=== PATIENT | male | born 2000 | race Caucasian/White ===

== ENCOUNTER 2023-06-19 12:47 | Outpatient (CLI) | payer OTHER, SELFPAY ==
--- NOTE | ~2023-06-19 | US_ITS ---
EXAMINATION: US soft tissue head and neck DATE: 06/19/2023 13:14 INDICATION: Infection of parotid gland with large palpable lump at the right neck situated between th e ear and the angle of the mandible TECHNIQUE: Multiple grayscale and Doppler ultrasound images of the right face/neck at the region of c oncern were obtained. COMPARISON: None FINDINGS: There are a few small anechoic cystic-appearing lesions with posterior acoustic enhancement in the le ft parotid gland, the larger measuring 8 x 5 x 4 mm and the smaller measuring 5 x 4 x 3 mm. No eviden t internal vascular flow within the lesions on color Doppler or solid soft tissue component. Surround ing left parotid gland is unremarkable. In the right parotid gland are couple larger very hypoechoic nodules but with prominent internal vascular flow on color Doppler. The larger measures 1.9 x 1.7 x 1 .5 cm with what appears to be a prominent echogenic hilum suggesting this could represent a lymph nod e. A smaller lesion also with increased internal vascular flow on color Doppler measures 6 x 6 x 5 mm . IMPRESSION: 1. A couple lesions in both the left and right parotid glands. The lesions on the left are smaller wi thout discernible soft tissue component or internal vascular flow. The lesions on the right are large r and with increased central vascular flow suggesting enlarged lymph nodes or solid parotid neoplasm which could be either benign or malignant. Recommend ultrasound-guided fine-needle aspiration of at l east the largest if not both of the lesions in the right parotid gland. Reviewed, dictated and finalized at location A. IMPRESSION: 1. A couple lesions in both the left and right parotid glands. The lesions on t he left are smaller without discernible soft tissue component or internal vascu lar flow. The lesions on the right are larger and with increased central vascul ar flow suggesting enlarged lymph nodes or solid parotid neoplasm which could b e either benign or malignant. Recommend ultrasound-guided fine-needle aspiratio n of at least the largest if not both of the lesions in the right parotid gland .
== END 2023-06-19 12:48 | disposition home or self-care (01) ==
LOC: CHSIMG 12:50
DX: K11.20 Sialoadenitis, unspecified (principal)
CPT/HCPCS: 76536

== ENCOUNTER 2023-07-23 12:41 | Outpatient (CLI) | payer OTHER, SELFPAY ==
--- NOTE | ~2023-07-23 | US_ITS ---
EXAMINATION: US FNA w image guidance DATE: 07/23/2023 13:47 INDICATION: Right parotid nodule TECHNIQUE: A time-out was performed to verify the patient's name, date of , and procedure to be performed . The procedure and its benefits and risks were discussed with the patient. Risks specifically discus sed included bleeding and infection. The patient understood the risks and agreed to proceed. The neck was prepped and draped in the usual sterile manner. 2 mL 1% lidocaine was used for local anesthesia . 6 passes were made with a 25G needle into the lesion. Appropriate needle location was documented with continuous sonographic guidance. A sterile bandage was applied. There were no immediate compli cations. FINDINGS: Grayscale ultrasound images demonstrate biopsy needles advanced into a 2.0 x 1.3 x 1.9 cm. There appe ars to be echogenic fatty hilum within the nodule favoring an enlarged lymph node. Additional real-ti me imaging of the remainder of the right parotid, the contralateral left parotid in the bilateral jug ular chains was performed. There were 2 12 x 8 mm and 7 x 5 mm similarly very hypoechoic nodules with in the right parotid lobe without evident echogenic hilum. Similar very hypoechoic nodules in the lef t parotid, one with small echogenic likely hilum measuring 9 x 9 mm and the second measuring 9 x 7 mm . There are also enlarged lymph nodes along the bilateral jugular chains measuring up to 2.3 x 1.4 x 1.6 similar on the right and 2.3 x 2.2 x 1.5 cm on the left. IMPRESSION: 1. Successful ultrasound-guided fine needle aspiration of the 2.0 x 1.3 x 1.9 cm hypoechoic right pa rotid nodule of concern likely representing an enlarged lymph node. 2. 4 additional smaller but similar-appearing very hypoechoic parotid nodules identified, 2 in the le ft parotid and 2 additional in the right parotid. There are also enlarged bilateral jugular chain lym ph nodes. This raises the possibility of lymphoma or metastatic disease if there is known history of prior malignancy. The patient reports that the palpable nodules have subjectively decreased in size s uggesting these could represent reactive lymphadenopathy. Depending on the results in the current bio psy and clinical history could consider either further clinical and/or imaging follow-up or core need le biopsy of one of the larger jugular chain lymph nodes. Reviewed, dictated and finalized at location A. IMPRESSION: 1. Successful ultrasound-guided fine needle aspiration of the 2.0 x 1.3 x 1.9 cm hypoechoic right parotid nodule of concern likely representing an enlarged l ymph node. 2. 4 additional smaller but similar-appearing very hypoechoic parotid nodules i dentified, 2 in the left parotid and 2 additional in the right parotid. There a re also enlarged bilateral jugular chain lymph nodes. This raises the possibili ty of lymphoma or metastatic disease if there is known history of prior maligna ncy. The patient reports that the palpable nodules have subjectively decreased in size suggesting these could represent reactive lymphadenopathy. Depending on the results in the current biopsy and clinical history could consider either f madayther clinical and/or imaging follow-up or core needle biopsy of one of the la rger jugular chain lymph nodes.
== END 2023-07-23 12:42 | disposition home or self-care (01) ==
PROVIDERS: Visit Provider Otolaryngology
DX: K11.8 Other diseases of salivary glands (principal)
CPT/HCPCS: 10005; 88108; 88305

== ENCOUNTER 2023-08-14 15:51 | Outpatient (CLI) | payer OTHER, SELFPAY ==
[2023-08-14 16:03] LABS: Basophils Percent Auto 0.4 % (0.2-1.2); Eosinophils Absolute Auto 0.1 K/mm3 (0-0.3); Eosinophils Percent Auto 1.2 % (0-4.4); Hematocrit 40.6 % (42.0-52.0); Hemoglobin 13.7 g/dL (14.0-18.0); Immature Granulocyte Absolute 0.02 K/mm3 (0.00-0.031); Immature Granulocyte Percent A 0.3 % (0-0.5); Lymphocytes Absolute Auto 3.41 K/mm3 (0.9-3.2); Lymphocytes Percent Auto 45.5 % (18.3-44.2); Mean Corpuscular HGB Conc 33.7 g/dl (32-36); Mean Corpuscular Hemoglobin 28.4 pg (26-34); Mean Corpuscular Volume 84.1 fl (80-100); Mean Platelet Volume 8.8 fl (7.4-10.4); Monocytes Absolute Auto 0.6 K/mm3 (0.1-0.6); Monocytes Percent Auto 8.5 % (2.6-8.5); Neutrophils Absolute Auto 3.3 K/mm3 (1.3-6.7); Neutrophils Percent Auto 44.1 % (45.5-73.1); Platelet Count Result 256 k/mm3 (150-375); Red Blood Count 4.83 M/mm3 (4.6-6.20); Red Cell Distribution Width 12.2 % (11.5-14.5); White Blood Count 7.5 K/mm3 (4.5-10.0)
[2023-08-14 16:42] LABS: Alanine Aminotransferase 55 U/L (6-50); Albumin Level 4.5 g/dL (3.5-5.1); Alkaline Phosphatase 58 U/L (38-126); Anion Gap 6 mmol/L (8-16); Aspartate Amino Transferase 39 U/L (17-59); Bilirubin,Total 1.2 mg/dL (0.2-1.3); Blood Urea Nitrogen 14 mg/dL (9-20); CRP < 0.5 mg/dL (<1.0); Calcium 9.2 mg/dL (8.4-10.2); Carbon Dioxide 31 mmol/L (22-30); Chloride 101 mmol/L (98-107); Estimated Glomerular Filt Rate > 60; Glucose 88 mg/dL (65-110); Lactate Dehydrogenase 182 U/L (120-246); Potassium 4.2 mmol/L (3.4-5.0); Sodium 138 mmol/L (137-145)
== END 2023-08-14 15:52 | disposition home or self-care (01) ==
PROVIDERS: Visit Provider Internal Medicine Hematology & Oncology
DX: R59.1 Generalized enlarged lymph nodes (principal)
CPT/HCPCS: 36415; 80053; 83615; 85025; 86140; 88184

== ENCOUNTER 2023-08-18 11:50 | Outpatient (CLI) | payer OTHER, SELFPAY ==
--- NOTE | ~2023-08-18 | CT_ITS ---
EXAMINATION: CT soft tiss nk chst ab pel w DATE: 08/18/2023 12:35 INDICATION: Lymphadenopathy. TECHNIQUE: Computed tomography (CT) of the neck, chest, abdomen, and pelvis was performed with 100 mL Omnipaque 350 intravenous contrast. Automated exposure control and iterative reconstruction techniqu e were employed. The dose-length product was 2180.59 mGy-cm. COMPARISON: None FINDINGS: NECK CT: There is a 15 x 15 mm right parotid lymph node. There is mild bilateral right high and mid internal j ugular chain lymphadenopathy and mild left high internal jugular chain lymphadenopathy. There is mild bilateral submandibular lymphadenopathy. CHEST CT: The lungs demonstrate mild atelectasis. No pleural effusion. The heart size is normal. No pericardial effusion. There are no pathologically enlarged lymph nodes. There is mild bilateral gynecomastia. ABDOMEN/PELVIS CT: The liver, gallbladder, spleen, pancreas, adrenal glands, and kidneys are normal. There are no dilate d loops of bowel. The prostate is mildly enlarged. There are no dilated loops of bowel. The appendix is normal. There are no pathologically enlarged lymph nodes. There is no free intraperitoneal fluid. There is a bubbly expansile lytic lesion of left ilium with involvement of the anterior superior lakes[place] c spine. IMPRESSION: 1. Mild head and neck lymphadenopathy, which may be reactive. Lymphoma cannot be excluded. Biopsy on 07/23/23 was nondiagnostic. 2. Bubbly expansile lytic lesion of left ilium. The differential diagnosis includes aneurysmal bone c yst and fibrous dysplasia. Reviewed, dictated and finalized at location E. IMPRESSION: 1. Mild head and neck lymphadenopathy, which may be reactive. Lymphoma cannot b e excluded. Biopsy on 07/23/23 was nondiagnostic. 2. Bubbly expansile lytic lesion of left ilium. The differential diagnosis incl udes aneurysmal bone cyst and fibrous dysplasia.
== END 2023-08-18 11:51 | disposition home or self-care (01) ==
LOC: CHSIMG 11:53
PROVIDERS: Visit Provider Internal Medicine Hematology & Oncology
DX: R59.1 Generalized enlarged lymph nodes (principal); R59.0 Localized enlarged lymph nodes; M89.9 Disorder of bone, unspecified
CPT/HCPCS: 70491; 71260; 74177; Q9967

== ENCOUNTER 2023-09-08 09:50 | Outpatient (CLI) | payer OTHER, SELFPAY ==
--- NOTE | ~2023-09-08 | US_ITS ---
EXAMINATION: US biopsy lymph node DATE: 09/08/2023 11:26 INDICATION: Right parotid mass and mild cervical lymphadenopathy TECHNIQUE: The procedure including the risks and benefits was discussed with the patient. Risks discu ssed included bleeding, nerve injury and infection. The patient understood the risks and agreed to pr oceed. The skin overlying the cephalad aspect of the right parotid gland was prepped and draped in u sual sterile fashion. Anesthetic was administered with 1% lidocaine subcutaneously. Initially a 20-g auge core biopsy needle was advanced under continuous ultrasound observation into the lesion of inter est. The approach was chosen to enter the nodule located at the periphery of the parotid to void javon ersing parotid tissue during the course of the biopsy. 3 core biopsy specimens were obtained. After t he initial three 20-gauge core biopsies an additional 4 core biopsy specimens were obtained with an 1 8-gauge core biopsy needle. The samples were all placed in RPMI media. The needle was removed and th e entry site was cleaned and dressed. Post procedure ultrasound demonstrated no hemorrhage. FINDINGS: Ultrasound images demonstrate patchy needle was advanced into the 1.7 x 1.4 x 1.0 cm hypoec hoic right parotid mass of concern. There is a central echogenic likely fatty hilum within the mass s uggesting this represents an enlarged lymph node. IMPRESSION: 1. Successful Ultrasound-guided biopsy of a 1.7 x 1.4 x 1.0 cm likely right intraparotid lymph node. Reviewed, dictated and finalized at location A. TROCARDIOGRAM TECHNICIAN IMPRESSION: 1. Successful Ultrasound-guided biopsy of a 1.7 x 1.4 x 1.0 cm likely right int raparotid lymph node.
== END 2023-09-08 09:51 | disposition home or self-care (01) ==
PROVIDERS: Visit Provider Internal Medicine Hematology & Oncology
DX: R22.1 Localized swelling, mass and lump, neck (principal)
CPT/HCPCS: 38505; 76942; 88305; 88342

== ENCOUNTER 2023-10-07 13:05 | Outpatient (CLI) | payer OTHER, SELFPAY ==
[2023-10-07 13:22] LABS: Basophils Percent Auto 0.5 % (0.2-1.2); Eosinophils Absolute Auto 0.1 K/mm3 (0-0.3); Eosinophils Percent Auto 1.1 % (0-4.4); Hematocrit 42.6 % (42.0-52.0); Hemoglobin 14.3 g/dL (14.0-18.0); Immature Granulocyte Absolute 0.02 K/mm3 (0.00-0.031); Immature Granulocyte Percent A 0.3 % (0-0.5); Lymphocytes Percent Auto 49.6 % (18.3-44.2); Mean Corpuscular HGB Conc 33.6 g/dl (32-36); Mean Corpuscular Hemoglobin 28.1 pg (26-34); Mean Corpuscular Volume 83.7 fl (80-100); Monocytes Absolute Auto 0.5 K/mm3 (0.1-0.6); Monocytes Percent Auto 7.7 % (2.6-8.5); Neutrophils Absolute Auto 2.6 K/mm3 (1.3-6.7); Neutrophils Percent Auto 40.8 % (45.5-73.1); Platelet Count Result 276 k/mm3 (150-375); Red Blood Count 5.09 M/mm3 (4.6-6.20); Red Cell Distribution Width 11.9 % (11.5-14.5); White Blood Count 6.3 K/mm3 (4.5-10.0)
[2023-10-07 14:38] LABS: Immunoglobulin A 265 mg/dL (70-400); Immunoglobulin G 1407 mg/dL (700-1600); Immunoglobulin M 76 mg/dL (40-230)
== END 2023-10-07 13:06 | disposition home or self-care (01) ==
PROVIDERS: Visit Provider Internal Medicine Hematology & Oncology
DX: C85.11 Unspecified B-cell lymphoma, lymph nodes of head, face, and neck (principal)
CPT/HCPCS: 36415; 82784; 85025

== ENCOUNTER 2024-01-13 12:58 | Outpatient (CLI) | payer OTHER, SELFPAY ==
--- NOTE | ~2024-01-13 | XR_ITS ---
EXAMINATION: XR chest 2V 01/13/2024 13:19 INDICATION: Lymphadenopathy PROCEDURE: 2 view chest COMPARISON: No prior studies for comparison. FINDINGS: The lungs are clear. The cardiomediastinal silhouette is within normal limits. There are no pleural effusions. There is no pneumothorax suspected. IMPRESSION: 1: NO ACUTE CARDIOPULMONARY DISEASE. Reviewed, dictated and finalized at location L.
== END 2024-01-13 12:59 | disposition home or self-care (01) ==
LOC: CHSLAB 13:02
PROVIDERS: PCP Nurse Practitioner
DX: R59.1 Generalized enlarged lymph nodes (principal)
CPT/HCPCS: 71046

== ENCOUNTER 2024-07-08 03:58 | Emergency (ER) | payer OTHER, SELFPAY ==
[2024-07-08] VITALS (15 sets, daily range): BP systolic 100–133; BP diastolic 42–72; PULSE 66–84; RESP 8–23; TEMP 36.1–36.9; O2SAT 95–100
--- NOTE | ~2024-07-08 | CT_ITS ---
Clinical Indication: Back pain, chest pain CT Scan of the Chest, Abdomen, and Pelvis with Contrast: Technique: Contiguous sections were acquired throughout the chest, abdomen, and pelvis after intraven ous administration of 100 cc of Omnipaque 350. Dose reduction technique was used on this scan by mikey saucedo automated exposure control and iterative reconstruction technique. The dose-length product (DL P) was 2002.43 mGy-cm. Comparison: 08/18/2023 Findings: There is no evidence of any significant mediastinal, hilar or axillary lymphadenopathy. The mediastin al soft tissues appear normal. No aortic aneurysm or dissection. No central pulmonary embolus seen. There is no evidence of pleural or pericardial effusion. The lungs are clear. No pulmonary nodules or infiltrates are noted. There is diffuse hepatic steatosis. The spleen, pancreas, gallbladder, adrenals and kidneys are withi n normal limits. No evidence of aortic aneurysm. No lymphadenopathy. No bowel obstruction or bowel wall thickening. There is no evidence to suggest acute appendicitis. Urinary bladder is unremarkable. No pelvic mass seen. No ascites. Impression: No acute abnormalities seen. Diffuse hepatic steatosis. Reviewed, dictated and finalized at [facility]. Impression: No acute abnormalities seen. Diffuse hepatic steatosis.
--- NOTE | 2024-07-08 04:09 | ED.BACK ---
HPI - Back Pain/Injury General Chief Complaint: Back Pain/Injury Stated Complaint: UPPER BACK PAIN Time Seen by Provider: 07/08/24 04:05 Source: patient Mode of arrival: ambulatory Limitations: no limitations History of Present Illness HPI Narrative: 24-year-old male with no significant past medical history presents to the ED with -- 2 day history of interscapular pain which has gotten progressively worse -- 1 hour history of anterior chest pain which woke him up from his sleep. Pain is made worse by swallowing and breathing. pain is sharp and stabbing. -- Patient has nausea and belching. No shortness of breath -- dizziness no focal neuro deficits MD elicited complaint: back pain and other ( Anterior chest pain) Onset (ago): day(s) ( 2 days) Timing: intermittent Severity: severe Pain scale (0-10): 8 Similar Symptoms Previously: No Quality: sharp Location: thoracic spine Radiation: none Exacerbating factors: other ( swallowing) Relieving factors: none Associated symptoms: denies other symptoms and weakness Work related injury: No Related Data Home Medications Medication Instructions Recorded Confirmed allopurinol 100 mg tablet 100 mg PO DAILY 07/03/23 07/08/24 citalopram 20 mg tablet 20 mg PO DAILY 07/03/23 07/08/24 olmesartan 20 mg tablet 20 mg PO DAILY 07/03/23 07/08/24 Allergies Allergy/AdvReac Type Severity Reaction Status Date / Time No Known Allergies Allergy Unverified 07/08/24 03:59 Review of Systems Review of Systems: All systems reviewed & are unremarkable except as noted in HPI and below Constitutional: Constitutional: Reports as per HPI, Reports no additional constitutional complaints and Reports weakness Eyes: Eyes: Reports as per HPI and Reports no additional eye complaints ENT: Reports system reviewed and no additional complaints, except as documented and Reports as per HPI Cardiovascular: Cardiovascular: Reports as per HPI, Reports no additional cardiovascular complaints and Reports chest pain Comments: anterior chest pain in addition to interscapular pain which is sharp and stabbing. Respiratory: Comments: Increase in chest pain with deep breathing Gastrointestinal: Gastrointestinal: Reports as per HPI, Reports no additional gastrointestinal complaints and Reports nausea Genitourinary: Genitourinary: Reports no additional male genitourinary complaints Musculoskeletal: Musculoskeletal: Reports no additional musculoskeletal complaints and Reports as per HPI Integumentary/Breasts: Skin/Breast: Reports system reviewed and no additional complaints, except as docu and Reports as per HPI Neurologic: Reports system reviewed and no additional complaints, except as documented and Reports as per HPI Psychiatric: Psychiatric: Reports no additional psychiatric complaints and Reports as per HPI Endocrine: Endocrine: Reports no additional endocrine complaints and Reports as per HPI Hematologic/Lymphatic: Hematologic/Lymphatic: Reports no additional hematologic/lymphatic complaints and Reports as per HPI Allergic/Immunologic: Allergic/Immunologic: Reports no additional allergic/immunologic complaints and Reports as per HPI ( ) [facility] Past Medical History Medical History (Updated 07/08/24 @ 05:52 by Orestes Mitchell MD) Anxiety Broken wrist Left Clavicle fracture Hypertension Surgical History Surgical History (Updated 07/03/23 @ 13:02 by Fifi Álvarez [facility]) H/O knee surgery Left History of placement of ear tubes Family History Family History (Updated 07/03/23 @ 13:12 by Jose CalderaMD) Father Diabetes mellitus Hypertension Mother Diabetes mellitus Grandparent Heart disease Pancreatic cancer Social History Social History (Updated 07/03/23 @ 13:12 by Jose Caldera, ) Smoking status: Never smoker Alcohol intake: never Substance use: never Substance use type: does not use Exam Narrative: blood pressur
--- NOTE | 2024-07-08 04:10 | ECG_ITS ---
Test Date: 2024-07-08 04:13:11 Measurements Intervals [place] Rate: 83 P: 33 RI: 164 QRS: 27 QRSD: 118 T: 22 QT: 366 QTc: 431 Interpretive Statements SINUS RHYTHM INTRAVENTRICULAR CONDUCTION DELAY EARLY PRECORDIAL R/S TRANSITION BORDERLINE T WAVE ABNORMALITY- INFERIOR LEADS BASELINE ARTIFACT- I, II, III, AVR, AVL, AVF, V1-V6 BORDERLINE ECG No previous ECG available for comparison Electronically Signed On 07-08-2024 05:43:51 CDT by Timbo Molina D.O.
[2024-07-08 04:28] LABS: Basophils Absolute Auto 0.04 K/mm3 (0.00-0.10); Basophils Percent Auto 0.4 % (0.0-1.0); Eosinophils Absolute Auto 0.09 K/mm3 (0.02-0.50); Eosinophils Percent Auto 0.9 % (1.0-6.0); Hematocrit 41.1 % (40.0-54.0); Immature Granulocyte Absolute 0.03 K/mm3 (0.00-0.00); Immature Granulocyte Percent A 0.3 % (0.0-0.0); Lymphocytes Absolute Auto 4.94 K/mm3 (1.10-4.50); Lymphocytes Percent Auto 49.6 % (18.0-42.0); Mean Corpuscular HGB Conc 34.1 g/dL (32-36); Mean Corpuscular Hemoglobin 28.2 pg (27.0-31.0); Mean Corpuscular Volume 82.9 fL (78.0-102.0); Mean Platelet Volume 9.1 fl (8.7-11.0); Monocytes Absolute Auto 0.94 K/mm3 (0.10-0.90); Monocytes Percent Auto 9.4 % (2.0-11.0); Neutrophils Absolute Auto 3.91 K/mm3 (1.70-7.20); Neutrophils Percent Auto 39.4 % (50.0-70.0); Platelet Count Result 282 K/mm3 (150-420); Red Blood Count 4.96 M/mm3 (4.70-6.10); Red Cell Distribution Width 11.8 % (11.6-14.4)
[2024-07-08] MEDS: ONDANSETRON INJ 4 MG/2 ML VIAL IV PUSH (04:37)
[2024-07-08 04:40] LABS: D Dimer 0.19 mg/L (0.19-0.50); Partial Thromboplastin Time 25.6 Sec (23.9-30.70); Prothrombin Time 10.6 Seconds (9.50-12.1)
[2024-07-08] MEDS: fentaNYL CITRATE INJ (*CRX) 100 MCG/2 ML VIAL 25 MCG IV PUSH (04:40)
[2024-07-08 04:47] LABS: Lactic Acid Reflex 0.9 mmol/L (0.4-2.0)
[2024-07-08 04:49] LABS: Alanine Aminotransferase 51 U/L (16-63); Albumin Level 3.9 g/dL (3.4-5.0); Alkaline Phosphatase 76 U/L (46-116); Anion Gap 4 mmol/L (4-12); Aspartate Amino Transferase 22 U/L (15-37); Bilirubin,Total 0.5 mg/dL (0.00-1.00); Blood Urea Nitrogen 12 mg/dL (7-18); Carbon Dioxide 34 mmol/L (21-32); Chloride 100 mmol/L (98-108); Estimated CRCL calculation 135 ml/min; Estimated Glomerular Filt Rate > 60; Glucose 112 mg/dL (70-99); NT Pro B Type Natriuretic Pept 16 pg/mL (0-125); Osmolality Calculated 286 mOsm/kg (285-295); Potassium 3.4 mmol/L (3.5-5.1); Sodium 138 mmol/L (136-145); Total Protein 7.6 g/dL (6.4-8.2); Troponin I 4.6 ng/L (0.00-60.4)
[2024-07-08] MEDS: LABETALOL HCL INJ 100 MG/20 ML VIAL 10 MG IV PUSH (05:12)
[2024-07-08] MEDS: LACTATED RINGERS 1,000 ML 999 ML IV CONT (06:00)
[2024-07-08] MEDS: KETOROLAC 30 MG/ML VIAL (*BKC) IV PUSH (06:06)
== END 2024-07-08 06:55 | disposition home or self-care (01) ==
PROVIDERS: Emergency Provider Internal Medicine Critical Care Medicine; PCP Nurse Practitioner
DX: R07.9 Chest pain, unspecified (principal); M54.6 Pain in thoracic spine; I10 Essential (primary) hypertension; Z79.899 Other long term (current) drug therapy
CPT/HCPCS: 36415; 71275; 74174; 80053; 83605; 83880; 84484; 85025; 85380; 85610; 85730; 93005; 96374; 96375; 99284; 99285; J1885; J2405; J3010; J7120; Q9967

== ENCOUNTER 2024-11-20 11:13 | Outpatient (CLI) | payer OTHER, SELFPAY ==
--- NOTE | ~2024-11-20 | XR_ITS ---
EXAMINATION: XR chest 2V DATE: 11/20/2024 11:26 INDICATION: Cough and shortness of breath. TECHNIQUE: Frontal and lateral views of the chest were obtained. COMPARISON: Chest 2 views 01/13/2024, chest CT 07/08/2024 FINDINGS: There is no pneumonia, pleural effusion, or pneumothorax. The heart size is normal. IMPRESSION: 1. No acute cardiopulmonary disease. Reviewed, dictated and finalized at location A. SETTING MACHINE TENDER
--- OUTSIDE RECORDS SUMMARY | 2024-11-20 11:17 | XMS_ITS | Clinical Summary ---
Author Organization [facility] Address Formerly [facility], [id number] [place] [address] [place] [address] Care Team Providers Care Candle Cutter Name Role Phone Unavailable Primary Care Provider Unavailabl e Social History Tobacco Use Types Packs/Day Years Used Date Smoking Tobacco: Never Assessed Sex and Gender Information Value Date Recorded Sex Assigned at Not on file Legal Sex Male 7:42 AM CDT Gender Identity Not on file Sexual Orientation Not on file Plan of Treatment Health Maintenance Due Date Last Done Comments Annual Physical 2002 HPV Vaccines (1 - Male 3-dos e series) 2014 Hepatitis C 2017 DTaP, Tdap and Td Vaccines ( 1 - Tdap) 2018 Hepatitis B Vaccines (1 of 3 - 19+ 3-dose series) 2018 COVID-19 Vaccine ( - 2023-2 5 season) 2024 Influenza Adult (#1) 2024 Meningococcal B Vaccine Aged Out No l onger eligible based on patient's age to complete this topic Meningococcal Vaccine Aged Out No adiel javy eligible based on patient's age to complete this topic Pneumococcal Vaccine: Pediat rics (0 to 5 Years) and At-Risk Patients (6 to 64 Years) Aged Out No longer eligible b ased on patient's age to complete this topic RSV Immunizations Under 20 Months Aged Out No longer eligible based on patient's age to complete this topic
--- OUTSIDE RECORDS SUMMARY | 2024-11-20 11:17 | XMS_ITS | Data Portability ---
Author Organization [facility] (11[facility] Address [address] [facility] [address] [place] [address] Care Team Providers Care Air Brake Operator Name Role Phone RADHA TRAORE Referring Provider Assessment Encounter Date Assessment Date Assessment LastModified by Organization Details LastModified Time 01/11/2021 01/11/2021 Patient had Covi d infection in September since then he has headaches often. His both parents have sleep apnea he has history of snoring. He is also getting an MRI for the headache. We will do a home sleep study for possible sleep apnea which most likely he has. Will do a home sleep study then I'll call the patient and give the results make recommendations and arrange a treatment. [email or web address] Not available 01/11/2021 17:33:39 Plan of Treatment Reminders Order Date Submit Date Provider Last Modified By Organization Details Last Modified Time Details Appointments None record ed. Lab None record ed. Referral None record ed. Procedures None record ed. Surgeries None record ed. Imaging None record ed. Medication Orders None record ed. Patient TargetsNo targets recorded. Patient InstructionsNo instructions recorded. Reason for Referral None Reported. Problems Name Problem SNOMED Code Status Onset Date Resolution Date Notes Provider Name and Address Organization Details Recorded Time Obstructive sleep apnea syndrome 68285226 Active 021 PRINCESS CHICAS MD, DAB, F.C.C.P. NPI [id number] [facility] [address], [place], [address] [place] [address]/[facility] 17:14:25 Problem Notes None recorded. Procedures Surgical History Date Name Laterality Status Provider Name and Address Organization Details Recorded Time 04/29/202 1 Sleep Study completed Josh Martinez CT - [facility] 02/16/2021 09:00:33 Knee Surgery completed PRINCESS CHICAS MD, Becky VAILC.P. [address] [place] [address], [address], [place] - [facility] 01/11/2021 17:15:29 Imaging Results None recorded. Procedure Notes None recorded. Medical Equipment None Reported. Allergies No known drug allergies Medications Name Sig Start Date Stop Date Status Note LastModified by Organization Details LastModified Time azithromyci n 250 mg tablet TAKE 2 TABLETS BY MOUTH TODAY, THEN TAKE 1 TABLET DAILY FOR 4 DAYS 01/11 completed Not Available Not Available Not Available prednisone 20 mg tablet TAKE 1 TABLET BY MOUTH EVERY DAY 01/11 completed Not Available Not Available Not Available phentermine 37.5 mg tablet TAKE 1 TAB BY MOUTH EVERY MORNING FOR 5 DAYS, THEN OFF 2 DAYS, THEN REPEAT DIRECTED FOR 28 DAYS active Not Available Not Available No t Available citalopram 20 mg tablet TAKE 1 TABLET BY MOUTH EVERY DAY active Not Available Not Available No t Available fluticasone propionate 50 mcg/actuati on nasal spray,suspe nsion INSTILL 2 SPRAYS INTO EACH NOSTRIL DAILY active Not Available Not Available No t Available olmesartan 20 mg tablet TAKE 1 TABLET BY MOUTH EVERY DAY active Not Available Not Available No t Available Vitals Date Recorded Body height Provider Name an d Address Organization Details Last Updated DateTime 01/11/2021 182.88 cm PRINCESS CHICAS MD, Becky VAILC.P. Formerly [facility] [address], [address], [place] - [facility] 01/11/2021 17:13:36 Date Recorded Body mass index (BMI) Body weight Provider Name and Address Organization Details Last Updated DateTime 01/11/2021 36.6 kg/m2 179232.94 g PRINCESS CHICAS MD, Becky VAILC.P. Formerly [facility] [address], [address], [place] - [facility] 01/11/2021 17:13:42 Date Recorded Oxygen saturation Oxygen saturation in Arterial blood by Pulse oximetry Provider Name and Address Organization Details Last Updated DateTime 01/11/2021 99 % 99 % PRINCESS HCICAS MD, Dorothy VAIL.C.C.P. [address], [address], [place] - [facility] 01/11/2021 17:31:23 Date Recorded Heart rate Provider Name an d Address Organization Details Last Updated DateTime 01/11/2021 56 /min PRINCESS CHICAS MD, Dorothy VAIL.C.C.P. Former[facility] [address] [address], [place], [address], [place] [facility] 01/11/2021 17:31:28 Date Recorded Respiratory rate Provider Name a nd Address Organization Details Last Updated DateTime 01/11/2021 16 /min PRINCESS CHICAS MD, Dorothy VAIL.C.C.P. [address], [address], [place] [facility] 01/11/2021 17:31:31 Date Recorded Body height Provider Name an d Address Organization Details Last Updated DateTime 02/15/2021 182.[address] - [facility] 02/15/2021 16:17:34 Date Recorded Systolic blood pressure Diastolic blood pressure Provider Name and Address Organization Details Last Updated DateTime 01/11/2021 120 mm[Hg] 80 mm[Hg] PRINCESS CHICAS MD, Dorothy VAIL.C.C.P. Formerly [facility] [address], [address], [place] [facility] 01/11/2021 17:31:17 Social History Question Answer Notes LastModified by Organizat ion Details LastModified Time Tobacco Smoking Status Never Smoker PRINCESS CHICAS MD, Dorothy VAIL.C.C.P. [address],[facility] [address], [place], [address], [facility] 01/11/2021 17:15:01 What Is Your Level Of Alcohol Consumption? None Information not available 01/11/2021 What Is Your Level Of Caffeine Consumption? Moderate Information not available 01/11/2021 Sex: Unknown Functional Status None recorded. Mental Status None recorded. Family History Relationship Description Onset Age of this Age Resolved Age Notes LastModified by Organization Details LastModified Time Father Obstructive sleep apnea syndrome [email or web address] Not available 2020 17:14:43 Medical History Condition Response Allergies/Hayfever N Gout N Thyroid Disease N Anxiety N Emphysema N NSAID Use N Congenital Heart Disease N COPD N Depression N Pneumonia N Anemia N Multiple Sclerosis N Lung Mass N Sinusitis N Mental Illness N Meniere's disease N Cystic Fibrosis N Diabetes N Difficulty swallowing N Obesity N Arthritis N Seizures/Epilepsy N Chronic ear infections N Blood Clot N Tuberculosis N AIDS/HIV N Acid Reflux (GERD) N Cancer N Stroke N Diverticulitis N Nasal polyps N Asthma N Hospital Admission other than N Hypercholesterolemia N Sleep Apnea N Parasomnias N Hepatitis N Liver Disease N Bronchitis N Heart Disease N Pulmonary Embolism N Hypertension N Osteoporosis N Kidney Disease N Past Encounters Encounter ID Performer Location Encounter Start Date Encounter Closed Date Diagnosis/Indication Diagnosis SNOMED-CT Code Diagnosis ICD10 Code Diagnosis Note [id number] PRINCESS CHICAS MD, YARED F.C.C.P. [facility] ([address] [place] [address] 01/11/2021 16:36:15 01/15/2021 11:03:34 Obstructive sleep apnea of adult 3814192355 103 G47.33 [id number] PRINCESS CHICAS MD, YARED, F.C.C.P. [facility] [phone] [facility] [address] [place] [address] 02/15/2021 15:51:39 02/16/2021 09:01:46 Obstructive sleep apnea of adult 1028593716 103 G47.33 Health Concerns Section Related Observation LastModified by Organization Detai ls LastModified Time None Recorded Concern Status LastModified by Organization Details LastModified Time None Recorded Advance Directives Directive None Recorded Payers Encounter Date Sequence Insurance Name Policy Number Policy Arango Covered Member ID Arango Member ID Guarantor Name 01/11/2021 1 [place] [facility] [place] [id number] [facility] [id number] Gibson Barrett 02/15/2021 1 [place] [facility] [place] [id number] [facility] [id number] [facility] Notes Date Note Type Note Provider Name and Address Organization Details Recorded Time 1 text/html Sleep History-Reported bypatient.The patient presents with chief complaint ofsleepiness; snoring It is stated thathe goes to bed around 10 PM; usually falls asleep within 30 min The patient arises in the morning feelingat approximately 6.30 AM; unrefreshed Awakening at nightapproximately 1 per/night The patientdoes snore; Snoring is reported to be light Witnessed apneas, gasping for breathhave not been noted The patient iscurrently working as; During the day he is alert when active but sleepy and fatigued during quiet or boring activities During quiet activities (e.g. reading, watching TV)the patient nods off; There is a history of napping; 1 naps per week are reported During drivingand has not nodded off while driving; There have not been fall asleep accidents The Heppner SleepinessScore is 8 (Normal is less than 10) The patientThe patient is awakens with morning headaches about 3-4 times per week There isno awakening with chest pain Therehave not been problems with concentration memory difficulties Symptoms ofleg restlessness are not experienced The patient reportsno history of sleep paralysis hypnagogic hallucinations cataplexy Restless sleephas been noted; and kicking at night has not been noted The patientdoes not consume alcohol The patientreports that he has never smoked cigarettes Weightgain is reported Other medical problems includehypertension The patient reports that thereis a family history of a sleep disorder. PRINCESS CHICAS MD, DABSM, F.C.C.P. [address] [address], [place], [address], [facility] 01/11/2021 17:34:39 1 text/html HST SetupReported bypatient.HST set upDemonstrated to patient how to set up Home Sleep Test Device. The patient was able to return demonstration with out difficulty.; The patient is returning the device the following morning. PRINCESS CHICAS MD, DABTOMA, F.C.C.P. [address] [address], [place], [address], [facility] 02/19/2021 13:55:31
--- OUTSIDE RECORDS SUMMARY | 2024-11-20 11:17 | XMS_ITS | Clinical Summary ---
Author Organization [facility] Lily Lisa Address [address] [place] [address] Care Team Providers Care Pharmacy Scheduler Name Role Phone Unavailable Primary Care Provider Unavailabl e Allergies No known active allergies Medications olmesartan (BENICAR) 20 mg tablet Take 20 mg by mouth daily. Active citalopram (CeleXA) 20 mg tablet Take 20 mg by mouth daily at bedtime. Active allopurinoL (ZYLOPRIM) 100 mg tablet Take 100 mg by mouth daily. Active HYDROcodone-mildred taminophen (NORCO) 5-325 mg tabletIndicatio ns:Lymphadenopa thy Take 1 Tablet by mouth every 4 hours as needed for Pain, Moderate. Max Daily Amount: 6 Tablets 8 Tablet 12/01/2023 Active Active Problems No known active problems Encounters Date Type Department Care Team Description 11/10/2024 External Device Data [facility] ABSTRACTION Provider, Abstract 11/09/2024 External Device Data [facility] ABSTRACTION Provider, Abstract from Last 3 Months Family History Medical History Relation Name Comments Diabetes Father Relation Name Status Comments Brother Alive Father Alive Mother Alive Sister Alive Son Alive Social History Tobacco Use Types Packs/Day Years Used Date Smoking Tobacco: Never Smokeless Tobacco: Never Tobacco Cessation:Counseling Given: Not Answered Alcohol Use Standard Drinks/Week Comments Never 0 (1 standard drink = 0.6 oz pur e alcohol) Feeling Safe Answer Date Recorded Are you in a relationship wi th someone who hurts you emotionally and/or physically? No 12/01/2023 Sex and Gender Information Value Date Recorded Sex Assigned at Not on file Legal Sex Male 10:43 AM CDT Gender Identity Not on file Sexual Orientation Not on file Last Filed Vital Signs Vital Sign Reading Time Taken Comments Blood Pressure 111/61 12/01/2023 10:58 AM BUTTON SEWER HAND Pulse 71 12/01/2023 10:58 AM BUTTON SEWER HAND Temperature 36.2 ??C (97.2 ??F) 12/01/2023 10:[address] Respiratory Rate 16 12/18/2023 3:47 PM BUTTON SEWER HAND Oxygen Saturation 95% 12/01/2023 10:58 AM BUTTON SEWER HAND Inhaled Oxygen Concentration - - Weight 122.9 kg (271 lb) 12/18/2023 3:47 PM BUTTON SEWER HAND Height 185.4 cm (6' 1 ) 12/18/2023 3:47 PM BUTTON SEWER HAND Body Mass Index 35.75 12/18/2023 3:47 PM BUTTON SEWER HAND Plan of Treatment Health Maintenance Due Date Last Done Comments HPV VACCINES (1 - Male 3-dos e series) 2014 DTAP/TDAP/TD VACCINES (1 - Tdap) 2018 HEPATITIS B VACCINES (1 of 3 - 19+ 3-dose series) 2018 INFLUENZA VACCINE (#1) 2024 PNEUMOCOCCAL VACCINE 0-64 YEARS Aged Out No longer eligible based on patient's age to complete this topic Insurance
== END 2024-11-20 11:14 | disposition home or self-care (01) ==
LOC: CHSIMG 11:16
PROVIDERS: PCP Nurse Practitioner; Visit Provider Nurse Practitioner Family
DX: R05.9 Cough, unspecified (principal)
CPT/HCPCS: 71046

== ENCOUNTER 2025-05-19 17:07 | Emergency (ER) | payer OTHER, SELFPAY ==
--- NOTE | ~2025-05-19 | XR_ITS ---
EXAMINATION: XR hand LT min 3V DATE: 05/19/2025 17:29 INDICATION: Laceration to the webbing between the left first and second digits TECHNIQUE: Posteroanterior, oblique and lateral views of the left hand were obtained. COMPARISON: None. FINDINGS: Alignment is normal. No fracture. Joint spaces are normal. Soft tissues are unremarkable. No soft tis cleve gas or radiopaque foreign bodies. IMPRESSION: 1. Negative left hand radiographs with no osseous abnormality or radiopaque foreign body. Reviewed, dictated and finalized at location A. IMPRESSION: 1. Negative left hand radiographs with no osseous abnormality or radiopaque for eign body.
--- OUTSIDE RECORDS SUMMARY | 2025-05-19 17:09 | XMS_ITS | Patient Health Record ---
Author Organization [facility] Address [address] [place] [address] Care Team Providers Care Pm Head Cook Name Role Phone CLAUDY RICHARDSON Unavailable [phone] Reason For Referral No Information Medications Medication SIG (Take, Route, Frequency, Duration) Notes Start Date End Date Status sulfADIAZINE 500 MG Tablet 1 tablet Oral ly every 6 hrs; Duration: 10 day(s) Active Social History Tobacco Use: Social History Observation Description Date Details (start date - stop date) Never Smoker NA - NA Social History Tobacco Use: Social Info Question Answer Notes Tobacco Use/Smoking Are you a nonsmoker Problems Problem Type SNOMED Code ICD Code Onset Dates Problem Status W/U Status Risk Notes Problem Influenza vaccination declined (153466091) Influenza vaccination declined (Z28.21) Active confirmed Problem Sore throat (308175860) Sore throat (J02.9) Active confirmed Problem Chronic sinusitis (15869874) Sinusitis, unspecified chronicity, unspecified location (J32.9) Active confirmed Dispensed sample nasal saline. Patient advised to use nasal saline or oxymetazolin e. Plan Of Treatment No Information Insurance Providers Payer Name Payer Address Payer Phone Subscriber Number Group Number Insured Name Patient Relationship to Insured Coverage Start Date Coverage End Date [facility] [address] [place] [address] [phone] [id number] CHERELLE GREGORIO Child - Insured has Financial Responsibility 1 Medical (General) History Surgical History Surgery Date(Month/Year) KNEE SURGERIES LEFT COLONSCOPY TUBES EARS
[2025-05-19 17:10] VITALS: BP 112/60; PULSE 66; RESP 16; TEMP 36.6; O2SAT 98
--- OUTSIDE RECORDS SUMMARY | 2025-05-19 17:10 | XMS_ITS | Clinical Summary ---
Author Organization [facility] Lily Lisa Address [address] [place] [address] Care Team Providers Care Chlorine Cell Tender Name Role Phone Unavailable Primary Care Provider [...] Active Active Problems No known active problems Family History Medical History Relation Name Comments Diabetes Father Relation Name Status Comments Brother Alive Father Alive Mother Alive Sister Alive Son Alive Social History Tobacco Use Types Packs/Day Years Used Date Smoking Tobacco: Never Smokeless Tobacco: Never Tobacco Cessation:Counseling Given: Not Answered Alcohol Use Standard Drinks/Week Comments Never 0 (1 standard drink = 0.6 oz pur e alcohol) Sex and Gender Information Value Date Recorded Sex Assigned at Not on file Legal Sex Male 10:43 AM CDT Gender Identity Not on file Sexual Orientation Not on file Last Filed Vital Signs Vital Sign Reading Time Taken Comments Blood Pressure 111/61 12/01/2023 10:58 AM ABORIGINAL CEREMONIAL CELEBRANT Pulse 71 12/01/2023 10:58 AM ABORIGINAL CEREMONIAL CELEBRANT Temperature 36.2 C (97.2 F) 12/01/2023 10:58 AM ABORIGINAL CEREMONIAL CELEBRANT Respiratory Rate 16 12/18/2023 3:47 PM ABORIGINAL CEREMONIAL CELEBRANT Oxygen Saturation 95% 12/01/2023 10:58 AM ABORIGINAL CEREMONIAL CELEBRANT Inhaled Oxygen Concentration - - Weight 122.9 kg (271 lb) 12/18/2023 3:47 PM ABORIGINAL CEREMONIAL CELEBRANT Height 185.4 cm (6' 1) 12/18/2023 3:47 PM ABORIGINAL CEREMONIAL CELEBRANT Body Mass Index 35.75 12/18/2023 3:47 PM ABORIGINAL CEREMONIAL CELEBRANT Plan of Treatment Health Maintenance Due Date Last Done Comments HPV VACCINES (1 - Male 3-dose series) 2014 DTAP/TDAP/TD VACCINES (1 - Tdap) 2018 HEPATITIS B VACCINES (1 of 3 - 19+ 3-dose series) 01/19 INFLUENZA VACCINE (#1) 2025 Insurance [place] [id number]
--- OUTSIDE RECORDS SUMMARY | 2025-05-19 17:10 | XMS_ITS | Clinical Summary ---
Author Organization [facility] Address [address] [place] [address] Care Team Providers Care Coil Winding Supervisor Name Role Phone Unavailable Primary Care Provider [...] Vaccine ( - 2023-2 5 season) 2024 Meningococcal B Vaccine Aged Out No l onger eligible based on patient's age to complete this topic Meningococcal Vaccine Aged Out No adiel javy eligible based on patient's age to complete this topic Pneumococcal Vaccine: Pediat rics (0 to 5 Years) and At-Risk Patients (6 to 49 Years) Aged Out No longer eligible b ased on patient's age to complete this topic RSV Immunizations Under 20 Months Aged Out No longer eligible based on patient's age to complete this topic
--- NOTE | 2025-05-19 17:14 | ED.UPPEXIN ---
HPI - Extremity Injury (Upper) General Chief Complaint: Extremity Injury, Upper Stated Complaint: left hand laceration Time Seen by Provider: 05/19/25 17:13 Source: patient Mode of arrival: ambulatory Limitations: no limitations History of Present Illness HPI narrative: knife injury to left hand while opening birthday gift prior to arrival Related Data Home Medications ?Medication ?Instructions ?Recorded ?Confirmed ?Last Taken ?Type citalopram 20 mg tablet 20 mg PO DAILY 07/03/23 07/08/24 07/07/24 History olmesartan 20 mg tablet 20 mg PO DAILY 07/03/23 07/08/24 07/07/24 History Allergies Allergy/AdvReac Type Severity Reaction Status Date / Time No Known Allergies Allergy Verified 05/19/25 17:09 Review of Systems Review of Systems: All systems reviewed & are unremarkable except as noted in HPI and below PMFSH Past Medical History Medical History Hypertension Anxiety Broken wrist Left Clavicle fracture Surgical History Surgical History H/O knee surgery Left History of placement of ear tubes Family History Family History Father Diabetes mellitus Hypertension Mother Diabetes mellitus Grandparent Heart disease Pancreatic cancer Social History Social History Smoking status: Never smoker Alcohol intake: never Substance use: never Substance use type: does not use Exam Narrative: General appearance: Well-developed, well-nourished Skin: Normal color left hand exam showed 1 cm laceration at the dorsal side of the web between the thumb and index Vascular: Normal peripheral pulses, normal capillary refill. Musculoskeletal: Normal range of motion, nontender back Course Vital Signs Vital signs: Vital Signs Temperature 36.6 C 05/19/25 17:10 Pulse Rate 66 05/19/25 17:10 Respiratory Rate 16 05/19/25 17:10 Blood Pressure 112/60 05/19/25 17:10 Pulse Oximetry 98 05/19/25 17:10 Oxygen Delivery Room Air 05/19/25 17:10 Temperature 36.6 C 05/19/25 17:10 Pulse Rate 66 05/19/25 17:10 Respiratory Rate 16 05/19/25 17:10 Blood Pressure 112/60 05/19/25 17:10 Pulse Oximetry 98 05/19/25 17:10 Oxygen Delivery Room Air 05/19/25 17:10 Procedures Laceration Laceration 1: Date: 05/19/25 Time: 18:01 Site: hand Side (If applicable): left Size (cm): 1 Description: linear Depth: simple, single layer Local Anesthetic: lidocaine 1% and with epi Amount of anesthesia used (mL): 2 Pre-repair: wound explored, irrigated and deep structures intact ====== Skin Level ====== Skin layer closed with: nylon Size (cm): 5-0 Number of sutures: 3 Technique: simple, interrupted ====== Subcutaneous Layer ====== ====== Muscle Layer ====== ====== Tendon Layer ====== Critical Care Time Critical Care Time Critical Care Time: No Discharge Plan Discharge Clinical Impression: Laceration of hand, left Patient Disposition: Home Condition: Stable Instructions: Antibiotic Form, Laceration (ED) Additional Instructions: Return if symptoms are worsening , call your family physician for appointment, take Tylenol, ibuprofen as as needed for aches and pain, continue home medications. Keep hand elevated Topical Neosporin twice a day for the next 3 days Remove moe in 8 days Patient Language: Azeri Prescriptions: New cephalexin 500 mg capsule 500 mg PO Q6H Qty: 28 0RF No Action citalopram 20 mg tablet 20 mg PO DAILY olmesartan 20 mg tablet 20 mg PO DAILY Follow-up/Referrals: UNKNOWN,DOCTOR [Non-Staff] - Stand Alone Forms: Work/School Release IP
[2025-05-19] MEDS: LIDO 1%/EPINEPHRINE 1:100,000 20 ML VIAL 5 ML INFILTRATE (17:22)
--- OUTSIDE RECORDS SUMMARY | 2025-05-19 17:51 | XMS_ITS | Clinical Summary ---
Author Organization [facility] Address [address] [place] [address] Care Team Providers Care Inventory Associate Name Role Phone Unavailable Primary Care Provider [...]
--- OUTSIDE RECORDS SUMMARY | 2025-05-19 17:51 | XMS_ITS | Clinical Summary ---
Author Organization [facility] Lily Lisa Address [address] [place] [address] Care Team Providers Care Bleacher Operator Name Role Phone Unavailable Primary Care Provider [...] Comments Blood Pressure 111/61 12/01/2023 10:58 AM CAFETERIA TABLE ATTENDANT Pulse 71 12/01/2023 10:58 AM CAFETERIA TABLE ATTENDANT Temperature 36.2 C (97.2 F) 12/01/2023 10:58 AM CAFETERIA TABLE ATTENDANT Respiratory Rate 16 12/18/2023 3:47 PM CAFETERIA TABLE ATTENDANT Oxygen Saturation 95% 12/01/2023 10:58 AM CAFETERIA TABLE ATTENDANT Inhaled Oxygen Concentration - - Weight 122.9 kg (271 lb) 12/18/2023 3:47 PM CAFETERIA TABLE ATTENDANT Height 185.4 cm (6' 1) 12/18/2023 3:47 PM CAFETERIA TABLE ATTENDANT Body Mass Index 35.75 12/18/2023 3:47 PM CAFETERIA TABLE ATTENDANT Plan of Treatment Health Maintenance Due Date Last Done Comments HPV VACCINES (1 - Male 3-dose series) 2014 DTAP/TDAP/TD VACCINES (1 - Tdap) 2018 HEPATITIS B VACCINES (1 of 3 - 19+ 3-dose series) 01/19 INFLUENZA VACCINE (#1) 2025 Insurance [employer] [id number]
[2025-05-19] MEDS: NEOMYCIN/POLYMYXIN/BACITRACIN OINTMENT 15 GM TUBE 1 APPLIC TOPICAL (18:00)
== END 2025-05-19 18:02 | disposition home or self-care (01) ==
PROVIDERS: Emergency Provider Emergency Medicine
DX: S61.412A Laceration without foreign body of left hand, initial encounter (principal); I10 Essential (primary) hypertension; W26.0XXA Contact with knife, initial encounter
CPT/HCPCS: 12001; 73130; 99283; A9270; J2004